=== PATIENT | male | born 1990 | race African-American/Black ===

== ENCOUNTER 2019-11-05 17:21 | Emergency (ER) | payer OTHER ==
[~2019-11-05] VITALS: Ht 175.3 cm; Wt 59.0 kg
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
[2019-11-05 18:53] VITALS: BP 130/81
--- NOTE | 2019-11-05 18:53 | NUR ---
Patient discharged to home in stable condition. Written and verbal after care instructions given. Patient verbalizes understanding of instruction.
== END 2019-11-05 18:54 | disposition home or self-care (01) ==
LOC: ER 17:31
DX: M20.011 Mallet finger of right finger(s) (principal); M25.522 Pain in left elbow; Z60.2 Problems related to living alone; W22.8XXA Striking against or struck by other objects, initial encounter; Y93.89 Activity, other specified; Y92.89 Other specified places as the place of occurrence of the external cause; Y99.8 Other external cause status
CPT/HCPCS: 73080-TC; 73140-TC